=== PATIENT | female | born 1990 | race Caucasian/White ===

== ENCOUNTER → 2017-12-11 13:30 | Outpatient (CLI) | payer SELFPAY ==
[2017-12-18 08:05] LABS: HPV Reflexed? NOT INDICATED
== END ==
PROVIDERS: Visit Provider Obstetrics & Gynecology
DX: Z12.4 Encounter for screening for malignant neoplasm of cervix (principal)
CPT/HCPCS: 88175; G0145

== ENCOUNTER → 2018-01-08 18:01 | Outpatient (CLI) | payer SELFPAY ==
--- NOTE | 2018-01-08 | IMM_PTH ---
PATIENT: ADELAIDE YAO LOC: [facility] U#:[id number] AGE/SX: 35/F ROOM: RE01/08/[address]: Dr. Katia Ann MD : 1990 BED: DIS: SPEC #: [id number] RECD: 01/10/18 12:28 STATUS: ALISA REMalena #: [id number] RICHA: 01/08/18 00:[address]: Katia Woo DEPT: IMMUNOHISTOCHEMISTRY RECD BY: Monique Lowry Tissues: A - Uterine cervix, NOS B - Uterine cervix, NOS Procedures: p16 (initial) KI-67 (add) PHYSICIAN & [place] [id number] SPECIMEN INFORMATION: Tissue Source: A ? Cervical biopsy at 11 o?clock, B - Cervical biopsy at 1 o?clock Clinical Info: LGSIL, mild dysplasia Specimen Number: [id number] A & B CPT code: 35646 x2, 62623 x2 METHODOLOGY: Deparaffinized sections of prefer/formalin-fixed tissue or PAP/DQ stained slides are incubated with monoclonal/polyclonal antibodies/oligonucleotide probes. Localization is made via biotin free immunoperoxidase method. Appropriate controls are performed and reacted as expected. Results on target cell population are indicated in the following table: RESULTS: ANTIBODY / CLONE RESULT Block A P16 (E6H4) positive, block staining Ki-67 (30-9) positive, moderate Block B P16 (E6H4) negative Ki-67 (30-9) negative These tests were developed and their performance characteristics determined by [facility]. They may not have been cleared or approved by the [place]. Food and Drug Administration. The FDA has determined that such clearance or approval is not necessary. INTERPRETATION: A. Cervical biopsy at 11 o?clock: Mild and moderate squamous dysplasia. B. Cervical biopsy at 1 o?clock: Focal changes suspicious for HPV cytopathic effect. SJ:josh 01/11/18
--- NOTE | 2018-01-08 15:00 | CER_PTH ---
PATIENT: ADELAIDE YAO LOC: [facility] #:[id number] AGE/SX: 35/F ROOM: RE01/08/[address]: Dr. Katia Ann MD : 1990 BED: DIS: SPEC #: [id number] RECD: 01/08/18 17:32 STATUS: ALISA IRENA #: [id number] RICHA: 01/08/18 15:[address]: Katia Woo DEPT: SURGICAL PATHOLOGY RECD BY: Hernando Root Tissues: A - Uterine cervix, NOS B - Uterine cervix, NOS C - Endocervical Procedures: Surgery Specimen Level IV HEADER OPERATION: Colposcopy PRE-OP DIAGNOSIS: LGSIL pap, LMP 7/3 on OCP; mild dysplasia TISSUE SUBMITTED: A ? Cervical biopsy at 11 o?clock, B ? Cervical biopsy at 1 o?clock, C - ECC MICROSCOPIC DIAGNOSIS A. 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 Acute and chronic inflammation and squamous metaplasia. See comment. B. Cervix, 1 o?clock, biopsy: Focal changes suspicious for HPV cytopathic effects. Acute and chronic inflammation. See comment. C. ECC: The specimen did not survive processing. See comment. SJ:rg 01/10/18 COMMENT A & B. Results from immunohistochemistry ([id number]) for surrogate HPV marker (p16) will be reported separately. C. The specimen grossly entirely consists of mucoid tissue. No epithelial tissue is identified. MICROSCOPIC DESCRIPTION Slides are reviewed. GROSS DESCRIPTION A - Received in fixative is one container labeled with the patient's name and designated cervical biopsy at 11 o'clock. The specimen consists of one irregular fragment of light jordan soft tissue that measures 0.4 x 0.3 x 0.1 cm. The specimen is totally submitted in one cassette. B - Received in fixative is one container labeled with the patient's name and designated cervical biopsy at 1 o'clock. The specimen consists of one irregular fragment of light jordan soft tissue that measures 0.3 x 0.2 x 0.1 cm. The specimen is totally submitted in one cassette. C - Received in fixative is one container labeled with the patient's name and designated ECC. The specimen consists of multiple fragments of jordan mucoid tissue that in aggregate measure 0.5 x 0.2 x 0.1 cm. The specimen is totally submitted in one cassette. / SJ:rg 01/09/18 TC:5 CPT: 51461 x3 ADDENDUM ADDENDUM ADDENDUM ADDENDUM ADDENDUM ADDENDUM ADDENDUM ADDENDUM ADDENDUM ADDENDUM ADDENDUM 02/19/2018 11:36 ADDENDUM 02/19/2018 11:36 ADDENDUM 02/19/2018 11:36 ADDENDUM 02/19/2018 11:36 ADDENDUM 02/19/2018 11:36 This addendum is added to incorporate an outside pathology consultation report. The case was examined at [facility] (#[id number]) and the following diagnosis was rendered. A. Cervix, 11 o?clock, biopsy: Moderate squamous dysplasia (ISHA II). B. Cervix, 1 o?clock, biopsy: Transformation zone, chronic inflammation. C. Endocervix, curettings: No tissue identified. Please see complete above mentioned consultation report in EMR
== END ==
PROVIDERS: Visit Provider Obstetrics & Gynecology
DX: N87.0 Mild cervical dysplasia (principal)
CPT/HCPCS: 88305; 88341; 88342